=== PATIENT | male | born 1990 | race Caucasian/White ===

== ENCOUNTER 2024-12-04 16:35 | Emergency (ER) | payer OTHER ==
[2024-12-04] MEDS ORDERED: TETRACAINE 0.5% OPHTH SOLN 2 ML BOTTLE ONE (17:00)
[2024-12-04] MEDS: FLUORESCEIN NA 1 EA STRIP OS ONE (17:01)
[2024-12-04] MEDS: TETRACAINE 0.5% HCL 0.6ML DROPPER.BOTTLE OS ONE (17:02)
[2024-12-04 17:07] VITALS: BP 133/82; PULSE 94; RESP 18; TEMP 99.1; BMI 29.5
[2024-12-04] MEDS: ERYTHROMYCIN 0.5% OPHTHALMIC OINTMENT 3.5 GM TUBE OS ONE (17:25)
[2024-12-04] MEDS ORDERED: ERYTHROMYCIN 0.5% OPHTHALMIC OINTMENT 3.5 GM TUBE ONE (17:25)
== END 2024-12-04 17:39 | disposition home or self-care (01) ==
LOC: FER 16:35
DX: H16.002 Unspecified corneal ulcer, left eye (principal); H57.89 Other specified disorders of eye and adnexa
CPT/HCPCS: 99283-25